=== PATIENT | male | born 1970 | race Caucasian/White ===

== ENCOUNTER 2021-06-18 10:45 | Outpatient (CLI) | payer OTHER, SELFPAY ==
[2021-06-18 11:37] LABS: Hematocrit 41.8 % (42.0-52.0); Hemoglobin 14.4 g/dL (14.0-18.0); Mean Corpuscular HGB Conc 34.4 g/dl (32-36); Mean Corpuscular Hemoglobin 30.1 pg (26-34); Mean Corpuscular Volume 87.4 fl (80-100); Mean Platelet Volume 9.5 fl (7.4-10.4); Platelet Count Result 208 k/mm3 (150-375); Red Blood Count 4.78 M/mm3 (4.6-6.20); Red Cell Distribution Width 13.5 % (11.5-14.5); White Blood Count 7.5 K/mm3 (4.5-10.0)
[2021-06-18 12:01] LABS: LDL Cholesterol Direct 176 mg/dL
[2021-06-18 12:11] LABS: Creatinine Urine 118.6 mg/dL
[2021-06-18 12:22] LABS: Prostate Specific Antigen < 0.1 ng/mL (< OR = 4.0)
[2021-06-18 12:24] LABS: Alanine Aminotransferase 25 U/L (4-50); Albumin Level 4.9 g/dL (3.5-5.1); Alkaline Phosphatase 54 U/L (38-126); Anion Gap 13 mmol/L (8-16); Aspartate Amino Transferase 44 U/L (17-59); Bilirubin,Total 1.5 mg/dL (0.2-1.3); Blood Urea Nitrogen 23 mg/dL (9-20); Calcium 9.6 mg/dL (8.4-10.2); Carbon Dioxide 24 mmol/L (22-30); Chloride 97 mmol/L (98-107); Estimated Glomerular Filt Rate > 60; Glucose 311 mg/dL (65-110); HDL Direct 54 mg/dL; Potassium 4.3 mmol/L (3.4-5.0); Sodium 134 mmol/L (137-145); Triglycerides 482 mg/dL (<150)
[2021-06-18 12:55] LABS: Free T4 Free Thyroxine 0.21 ng/mL (0.78-2.19)
[2021-06-18 12:56] LABS: Folic Acid 11.4 ng/mL (2.76->20)
[2021-06-18 13:22] LABS: Microalbumin Urine Random > 1140.0 mg/L (0-16.7)
[2021-06-18 15:41] LABS: Cholesterol 398 mg/dL (0-200); Thyroid Stimulating Hormone > 100.000 uIU/mL (0.465-4.680)
== END 2021-06-18 10:46 | disposition home or self-care (01) ==
PROVIDERS: PCP Internal Medicine; Visit Provider Physician Assistant
DX: E11.9 Type 2 diabetes mellitus without complications (principal); E03.9 Hypothyroidism, unspecified; R53.83 Other fatigue; Z12.5 Encounter for screening for malignant neoplasm of prostate
CPT/HCPCS: 36415; 80053; 80061; 82043; 82607; 82746; 83036; 84153; 84439; 84443; 85027; G0103

== ENCOUNTER 2022-10-11 08:20 | Emergency (ER) | payer OTHER, SELFPAY ==
[2022-10-11 08:30] VITALS: BP 189/89; PULSE 91; RESP 14; TEMP 36.8; O2SAT 100
--- NOTE | 2022-10-11 08:50 | ED.URI ---
HPI - URI/Sore Throat General Chief Complaint: Upper Respiratory Infection Stated Complaint: cold Time Seen by Provider: 10/11/22 08:53 Source: patient, RN notes reviewed and old records reviewed Mode of arrival: ambulatory Limitations: no limitations History of Present Illness HPI Narrative: 52-year-old male who presents to [facility] with complaints of cough and congestion since Friday. Patient reports he has has some discomfort to his chest related to cough, patient states had open heart surgery 14 months ago and chest is tender since the surgery and cough has aggravated symptoms. Patient states that cough is hacking and persistent. Patient reports that he has taken Antihistamine and Tylenol.Patient reports some ear pressure,runny nose also,denies any shortness of breath or any sore throat, denies any fevers. Patient has had COVID vaccinations and flu shot.. MD elicited complaint: cough, rhinorrhea, nasal congestion and other (ear pressure) Pain scale (0-10): 2 Treatments prior to arrival: acetaminophen and other (antihistamine) Related Data Home Medications Medication Instructions Recorded Confirmed aspirin 81 mg tablet,delayed 81 mg PO DAILY 02/22/20 10/11/22 release (Adult Low Dose Aspirin) multivitamin 1 tablet PO DAILY 02/22/20 10/11/22 atorvastatin 80 mg tablet 80 mg PO DAILY 10/11/22 10/11/22 clopidogrel 75 mg tablet 75 mg PO DAILY 10/11/22 10/11/22 dapagliflozin 10 mg tablet 10 mg PO DAILY 10/11/22 10/11/22 (Farxiga) insulin glargine-yfgn 100 unit/mL 10 unit subcut QHS 10/11/22 10/11/22 (3 mL) subcutaneous pen (Semglee (insulin glargine-yfgn) Pen) metformin 1,000 mg tablet 1,000 mg PO QPM 10/11/22 10/11/22 sacubitril 24 mg-valsartan 26 mg 1 tablet PO BID 10/11/22 10/11/22 tablet (Entresto) Allergies Allergy/AdvReac Type Severity Reaction Status Date / Time No Known Allergies Allergy Verified 10/11/22 08:45 Review of Systems Review of Systems: CONSTITUTIONAL: Reports malaise,no chills, sweats, or fever. EYES: Denies visual changes, redness, or discharge. ENT: Reports rhinorrhea, congestion, sinus pain, reports ear pressure, no sore throat. CARDIOVASCULAR: Denies chest pain, palpitations, or edema, some discomfort to upper chest related to cough RESPIRATORY: Reports cough.? Denies dyspnea. GASTROINTESTINAL: Denies abdominal pain, nausea, vomiting, diarrhea SKIN: Denies rash or itching. MUSCULOSKELETAL: Denies myalgia. NEUROLOGIC: Denies headache. All systems reviewed & are unremarkable except as noted in HPI and below PMFSH Past Medical History Medical History (Updated 10/12/22 @ 00:00 by Asif Daavis) Cardiopathy CHF (congestive heart failure) Diabetes mellitus Hypercholesteremia Hypertension Hypothyroidism Toenail torn away Surgical History Surgical History (Updated 10/11/22 @ 20:48 by Miguelina Swanson NP) H/O wisdom tooth extraction H/O: vasectomy History of open heart surgery 3 vessel bypass grafts Family History Family History Sibling Asthma Mother Patient's mother is in good health Father Hypertension Family history of diabetes mellitus in first degree relative Other Diabetes mellitus Family history of chronic obstructive pulmonary disease Family history of elevated blood lipids Social History Social History Smoking status: Never smoker Second hand tobacco smoke exposure: No Alcohol intake: current Comments At time of signature, agree with nursing past medical, surgical, social and family history. There is no relevant family history pertinent to the presenting complaint Exam Narrative: GENERAL: Well-appearing, well-nourished, and in no acute distress. HEAD: Normocephalic EYES: PERRLA, conjunctivae clear ENT: Nares clear, turbinates edematous and erythematous, clear discharge. Mucous membranes moist. TM p
== END 2022-10-11 09:05 | disposition home or self-care (01) ==
PROVIDERS: Emergency Provider Registered Nurse
DX: J06.9 Acute upper respiratory infection, unspecified (principal); I11.0 Hypertensive heart disease with heart failure; I50.9 Heart failure, unspecified; E11.9 Type 2 diabetes mellitus without complications; E78.00 Pure hypercholesterolemia, unspecified; E03.9 Hypothyroidism, unspecified; Z95.1 Presence of aortocoronary bypass graft; Z98.52 Vasectomy status
CPT/HCPCS: 99213; G0463

== ENCOUNTER 2023-06-02 10:54 | Emergency (ER) | payer OTHER, SELFPAY ==
[2023-06-02 11:02] VITALS: BP 125/64; PULSE 85; RESP 20; TEMP 36.4; O2SAT 100
[2023-06-02 11:07] VITALS: BP 125/64; PULSE 85; RESP 20; TEMP 36.4; O2SAT 100
--- NOTE | 2023-06-02 12:00 | ED.URI ---
HPI - URI/Sore Throat General Chief Complaint: Upper Respiratory Infection Stated Complaint: cold/chest congestion Source: patient and RN notes reviewed History of Present Illness HPI Narrative: 52 yo M presents to urgent care with complaints of congestion that has traveled down to his chest, causing a cough. Pt states it all started on Friday. Pt reports left ear pain on Friday which he no longer has. Pt reports a sore throat on Friday which went away as well. Denies any N/V, chest pain, or abdominal pain. Pt does report some SOB, usually worse at nighttime. Pt has been taking Mucinex at home. Related Data Home Medications Medication Instructions Recorded Confirmed aspirin 81 mg tablet,delayed 81 mg PO DAILY 02/22/20 06/02/23 release (Adult Low Dose Aspirin) multivitamin 1 tablet PO DAILY 02/22/20 06/02/23 atorvastatin 80 mg tablet 80 mg PO DAILY 10/11/22 06/02/23 clopidogrel 75 mg tablet 75 mg PO DAILY 10/11/22 06/02/23 dapagliflozin propanediol 10 mg 10 mg PO DAILY 10/11/22 06/02/23 tablet (Farxiga) insulin glargine-yfgn 100 unit/mL 10 unit subcut QHS 10/11/22 06/02/23 (3 mL) subcutaneous pen (Semglee (insulin glargine-yfgn) Pen) metformin 1,000 mg tablet 1,000 mg PO QPM 10/11/22 06/02/23 sacubitril 24 mg-valsartan 26 mg 1 tablet PO BID 10/11/22 06/02/23 tablet (Entresto) Allergies Allergy/AdvReac Type Severity Reaction Status Date / Time No Known Allergies Allergy Verified 10/11/22 08:45 Review of Systems Review of Systems: Pertinent positives and pertinent negatives per HPI. [facility] Past Medical History Medical History (Updated 06/02/23 @ 12:02 by Alena Dela Cruz APRN) Cardiopathy CHF (congestive heart failure) Diabetes mellitus Hypercholesteremia Hypertension Hypothyroidism Toenail torn away Surgical History Surgical History (Updated 10/11/22 @ 20:48 by Miguelina Swanson NP) H/O wisdom tooth extraction H/O: vasectomy History of open heart surgery 3 vessel bypass grafts Family History Family History Sibling Asthma Mother Patient's mother is in good health Father Hypertension Family history of diabetes mellitus in first degree relative Other Diabetes mellitus Family history of chronic obstructive pulmonary disease Family history of elevated blood lipids Social History Social History Smoking status: Never smoker Second hand tobacco smoke exposure: No Alcohol intake: current Comments At the time of my signature, I reviewed and agree with the nursing past medical, surgical, social, and family history. There is no relevant family history pertinent to the patient complaint. Exam Narrative: GENERAL: This is a well-nourished, well-developed patient, in no apparent distress. HEAD: normocephalic, atraumatic. EYES: Sclera clear/white. Vision is grossly intact. EARS: External ears normal, auditory canals clear and without drainage, TMs normal without perforation. Hearing grossly intact. NOSE: External nose normal with no obvious nasal discharge, nares without redness, no rhinorrhea. THROAT: Mucous membranes moist, posterior pharynx clear. NECK: Neck supple, non-tender without lymphadenopathy, masses or thyromegaly. CARDIOVASCULAR: Regular rate and rhythm without murmurs, gallops, or rubs. RESPIRATORY: Clear to auscultation. Breath sounds equal bilaterally. No wheezes, rales, or rhonchi. GASTROINTESTINAL: Abdomen soft, non-tender, nondistended. Bowel sounds are active. No hepato-splenomegaly, or palpable masses. No guarding. SKIN: warm, intact with no suspicious lesions or rash, good texture and turgor. NEURO: awake, alert, and oriented to person, place and time. There were no obvious focal neurologic abnormalities. Course Course Level of Care: Express Care Visit Vital Signs Vital signs: Vital Signs Temperature 97.5 F L 06/02/23 11:0
== END 2023-06-02 12:05 | disposition home or self-care (01) ==
PROVIDERS: Emergency Provider Nurse Practitioner Family
DX: J06.9 Acute upper respiratory infection, unspecified (principal); I11.0 Hypertensive heart disease with heart failure; I50.9 Heart failure, unspecified; E11.9 Type 2 diabetes mellitus without complications; E03.9 Hypothyroidism, unspecified; E78.00 Pure hypercholesterolemia, unspecified; Z98.52 Vasectomy status; Z79.4 Long term (current) use of insulin; Z79.84 Long term (current) use of oral hypoglycemic drugs; Z79.82 Long term (current) use of aspirin
CPT/HCPCS: 99211; G0463